=== PATIENT | male | born 1965 | race Caucasian/White ===

== ENCOUNTER → 2024-03-16 | Outpatient (CLI) | payer OTHER, MEDICAID, SELFPAY ==
[2024-03-16 18:07] LABS: CRP < 2.90 mg/L (0.0-3.0)
[2024-03-20 08:13] LABS: Endomysial Antibody IgA Negative (Negative); Immunoglobulin A 168 mg/dL (90-386); t-Transglutaminase IgA <2 U/mL (0-3)
== END | disposition home or self-care (01) ==
LOC: MTLAB 15:07
PROVIDERS: PCP Family Medicine; Referring Provider Internal Medicine Gastroenterology; Visit Provider Internal Medicine Gastroenterology
DX: R19.7 Diarrhea, unspecified (principal)
CPT/HCPCS: 36415; 82784; 83516; 86140; 86255